=== PATIENT | female | born 1965 | race Caucasian/White ===

== ENCOUNTER → 2016-12-01 | Outpatient (REF) ==
--- NOTE | 2016-12-01 14:30 | Diagnostic Imaging Report ---
INDICATION: Positive TB skin test. TECHNIQUE: PA and lateral chest obtained at 2:30 p.m. FINDINGS: Heart and mediastinal silhouette are normal in appearance. The lungs are clear. There is no pneumothorax or pleural fluid. IMPRESSION: Negative chest. Dictated by: Dictated on workstation # [id number]
== END | disposition home or self-care (01) ==
LOC: OCC 14:02
PROVIDERS: ATTEND Nurse Practitioner Family
CPT/HCPCS: 71020